=== PATIENT | female | born 1990 | race African-American/Black ===

== ENCOUNTER 2022-03-08 06:05 | Emergency (ER) | payer OTHER ==
[~2022-03-08] VITALS: Ht 157.5 cm; Wt 84.4 kg
--- NOTE | 2022-03-08 06:51 | NUR ---
BIBS FOR GENITAL SWELLING/IRRITATION X1 WEEK EXTERNAL BLEEDING AND DYSURIA X1 DAY. PT 13 WEEKS A0 DENIES ANY ABD DISCOMFORT. WAS TREATED FOR URINE INFX Z1.5 WEEKS AGO BUT ENDORSES SYMPTOMS HAVE SINCE RESOLVED AND BELIEVES IT TO BE UNRELATED. DENIES ANY NEW SEXUAL PARTNERS OR ABNORMAL DISCHARGE. AFEBRILE AT [facility] V/S WNL. PT CHANGED INTO GOWN AND TO ER 16.
--- NOTE | 2022-03-08 07:37 | NUR ---
URINE COLLECTED AND SENT TO LAB
[2022-03-08 08:16] LABS: BILIRUBIN,URINE 1+ (NEGATIVE); COLOR,URINE YELLOW (YELLOW); LEUKOCYTE ESTERASE ,URINE 1+ (NEGATIVE); NITRITE, URINE NEGATIVE (NEGATIVE); PH,URINE 5.5 (5.0-8.0); PROTEIN,URINE NEGATIVE (NEGATIVE); UGLUCOSE NEGATIVE (NEGATIVE); UROBILINOGEN,URINE 0.2 EU/dL (0.2)
[2022-03-08] MEDS ORDERED: MICO100S5 VG (08:27)
[2022-03-08] MEDS ORDERED: LIDO28.310 TP (08:27)
[2022-03-08] MEDS ORDERED: LIDOCAINE 2% JEL UROJET 10 ML MM ONE ×2 (08:30→08:36)
--- NOTE | 2022-03-08 08:42 | NUR ---
PT HAS NO ORDER FOR IV NOR ANY IV MEDICATIONS TO GIVE THEREFORE NO STOP TIME FOR IV NEEDED AT THIS TIME
[2022-03-08 09:07] LABS: BACTERIA,URINE 2+ /HPF (None Seen); RBC,URINE 0-2 /HPF (0-2); WBC,URINE 21-50 /HPF (0-3)
[2022-03-08] MEDS ORDERED: CEPH500C2 PO (09:27)
[2022-03-08 09:31] VITALS: BP 121/63
--- NOTE | 2022-03-08 09:33 | NUR ---
Patient discharged to home in stable condition. Written and verbal after care instructions given. Patient verbalizes understanding of instruction.
== END 2022-03-08 09:38 | disposition home or self-care (01) ==
LOC: ER 06:08
DX: B37.31 Acute candidiasis of vulva and vagina (principal); N39.0 Urinary tract infection, site not specified; R10.2 Pelvic and perineal pain; Z79.899 Other long term (current) drug therapy
CPT/HCPCS: 99284; 87086; 84703; 81001; J3490